=== PATIENT | female | born 1985 | race African-American/Black ===

== ENCOUNTER 2016-06-16 13:14 | Emergency (ER) | payer MEDICAID ==
[~2016-06-16 13:14] MED LIST: Sodium Chloride 0.9% 1,000 ML BAG ONE
[2016-06-16 13:42] LABS: #Basophils 0.1 thou/uL (0.0-0.2); #Eosinphils 0.1 thou/uL (0.0-0.7); #Lymphocytes 3.2 thou/uL (1.20-3.40); #Monocytes 0.6 thou/uL (0.11-0.59); #Neutrophils 6.2 thou/uL (1.40-6.50); %Basophils 0.8 % (0.0-1.0); %Eosinophils 1.1 % (0.0-10.0); %Lymphocytes 31.3 % (21.0-51.0); %Monocytes 5.7 % (0.0-10.0); %Neutrophils 61.1 % (42.0-75.0); Hemoglobin 15.5 g/dL (12.0-16.0); Mean Corpuscular HGB CONC 34.7 g/dL (32.0-36.0); Mean Corpuscular Hemoglobin 31.8 pg (27.0-31.0); Mean Corpuscular Volume 91.7 fl (81.0-99.0); Mean Platelet Volume 7.8 fL (7.4-10.4); Platelet Count 316 thou/uL (130-400); RBC Distribution Width 11.1 % (11.5-14.5); Red Blood Cell (RBC) Count 4.87 mill/uL (4.20-5.40); White Blood Cell (WBC) Count 10.2 thou/uL (4.8-10.8)
[2016-06-16 14:18] LABS: ALT (SGPT) 15 U/L (0-55); AST (SGOT) 16 U/L (5-34); Albumin 4.7 g/dL (3.5-5.0); Alkaline Phosphatase 72 U/L (40-150); Anion Gap 26 mmol/L (10-20); BUN (Urea Nitrogen) 16 mg/dL (7.0-18.7); Bilirubin, Total 0.7 mg/dL (0.2-1.2); Calc. Creatinine Clearance 0 mL/min (70-130); Calcium 9.9 mg/dL (7.8-10.44); Carbon Dioxide 12 mmol/L (22-29); Chloride 97 mmol/L (98-107); Estimated GFR-MDRD 61; Globulin 3.9 g/dL (2.4-3.5); Glucose 368 mg/dL (70-105); Potassium 5.3 mmol/L (3.5-5.1); Protein, Total 8.6 g/dL (6.0-8.3); Sodium 130 mmol/L (136-145)
[2016-06-16 14:38] LABS: Blood, Urine Trace (Negative); Clarity Clear (Clear); Glucose, Urine (Dipstick) 500 mg/dL (Negative); Leukocyte Negative (Negative); Nitrite Negative (Negative); Protein, Urine (Dipstick) 30 mg/dL (Neg-Trace); Specific Gravity, Urine 1.025 (1.005-1.030); Urobilinogen 0.2 mg/dL (0.2-1.0)
[2016-06-16] MEDS ORDERED: Insulin Regular 300 UNITS/3 ML VIAL ONE (14:39)
[2016-06-16 14:44] LABS: Bilirubin Negative (Negative); Icto Negative (Negative); RBC/HPF 0-3 HPF (0-3)
[2016-06-16 14:45] LABS: Bacteria/HPF Rare-Few HPF (None Seen); Pregnancy Test - Urine (BHCG) NEGATIVE (NEGATIVE); Pregu Control Bar Appear? YES (CONTROL BAR); Specific Gravity 1.025 (1.002-1.036)
[2016-06-16 14:46] LABS: Pregu Control Background? CLEAR/WHITE (CLR/WHITE)
[2016-06-16 15:29] LABS: Base Excess -10.3 mEq/L (-2 - +2); Hemoglobin (Hb) 14.9 g/dL (11.7-15.5)
--- NOTE | 2016-06-16 16:58 | PICIS ---
[facility] EMERGENCY RECORD TRIAGE (13:20 MDEB) TRIAGE NOTES: WHEEZING, ELEVATED BLOOD SUGAR. (13:20 MDEB) PATIENT: NAME: Chrystal Huber, AGE: 30, GENDER: female, : Wed1985, TIME OF GREET: WedJun 16, 2016 13:15, PREFERRED LANGUAGE: Romansh, RACE: Black or , ETHNICITY: Not or , ECODE BILLING MAP: [facility], SSN: [id number], Zip Code: [address], PHONE: CELL, , , PERSON ID: [id number], PCP: alina. (13:20 MDEB) KG WEIGHT: 99.79. (13:38 MDEB) COMPLAINT: TROUBLE BREATHING. (13:20 MDEB) ADMISSION: URGENCY: 3 Urgent, ADMISSION SOURCE: Home, TRANSPORT: Walk-in, BED: TRIAGE. (13:20 MDEB) PROVIDERS: TRIAGE NURSE: Padmini Garza RN. (13:20 MDEB) VITAL SIGNS: BP 140/95, Pulse 106, Resp 20, Temp 97.2, (Tympanic), Pain 0, O2 Sat 100, on Room Air, Time 06/16/2016 13:19. (13:19 MDEB) KNOWN ALLERGIES SHELLFISH CURRENT MEDICATIONS No recorded medications VITAL SIGNS (13:19 MDEB) VITAL SIGNS: BP: 140/95, Pulse: 106, Resp: 20, Temp: 97.2 (Tympanic), Pain: 0, O2 sat: 100 on Room Air, Time: 06/16/2016 13:19. NURSING ASSESSMENT: RESPIRATORY /CHEST (13:58 MDEB) CONSTITUTIONAL: Patient arrives ambulatory, Gait steady, History obtained from patient, Patient appears, anxious, in respiratory distress, Patient cooperative, Patient alert, Oriented to person, place and time, Skin warm, Skin dry, Skin normal in color, Mucous membranes pink, Mucous membranes moist, Patient is well-groomed, Patient complains of ELEVATED BLOOD SUGAR, PT REPORTS HAVING DIFFICULTY BREATHING WITH EXERTION. SHE STATES SHE BECOMES WINDED WALKING ACROSS THE ROOM. PT STATES SHE IS WHEEZING. PAIN: Patient rates pain as 0 out of 10. RESPIRATORY/CHEST: Breath sounds clear, Respiratory assessment findings include respiratory effort easy, Respirations regular, Conversing normally, Neck and chest exam findings include trachea midline, Chest expansion equal, Chest movement symmetrical, Notes: NO WHEEZING NOTED. NO KETOSIS NOTED. ENT: Ear assessment findings include ear normal to inspection, Nasal assessment findings include nose normal to inspection, Mouth and throat assessment findings include mouth inspection normal, Mucous membranes pink, and moist, Able to swallow, Speech normal. &a-1R&a+25V*p+0X*v6283N*c202B*c15G*c2P*p-0X&a-25V&a+1R Name: Chrystal Huber : 1985 F30 MedRec: [id number] AcctNum: [id number] Prepared: Parish Jun 16, 2016 16:56 by Interface Page 1 of 11 D [facility] EMERGENCY RECORD NOTES: Emotional support needed and given, Patient tolerated procedure well. SAFETY: Side rails up, Cart/Stretcher in lowest position, Family at bedside, Call light within reach, Hospital ID band on. NURSING PROCEDURE: BEDSIDE TESTING PATIENT IDENTIFIER: Patient actively involved in identification process, Patient's identity verified by patient stating name, Patient's identity verified by hospital ID bracelet. (15:58 MDEB) Patient actively involved in identification process, Patient's identity verified by patient stating name, Patient's identity verified by hospital ID bracelet. (15:07 MDEB) GLUCOSE: Glucose testing indicated for diabetic patient, Capillary blood sample, Result (mg/dl) 290. (15:58 MDEB) Glucose testing indicated for diabetic patient, Capillary blood sample, Result (mg/dl) 331. (15:07 MDEB) FOLLOW-UP: After procedure, results given to Dr. LARA. (15:58 MDEB) After procedure, results given to Dr. LARA. (15:07 MDEB) SAFETY: Side rails up, Cart/Stretcher in lowest position, Family at bedside, Call light within reach, Hospital ID band on. (15:58 MDEB) Side rails up, Cart/Stretcher in lowest position, Family at bedside, Call light within reach, Hospital ID band on. (15:07 MDEB) NURSING PROCEDURE: ENVIRONMENTAL PROTECTION SPECIALIST (13:20 MDEB) PATIENT IDENTIFIER: Patient actively involved in identification process, Patient's identity verified by patient stating name, Patient's identity verified by hospital ID bracelet. ENVIRONMENTAL PROTECTION SPECIALIST: Cardiac monitoring indicated for ELEVATED BLOOD SUGAR, Patient placed on monitor technician, Heart rate: 103, showing sinus tachycardia, Patient placed on non-invasive blood pressure monitor, Patient placed on continuous pulse oximetry. FOLLOW-UP: After procedure, alarms set and on, After procedure, patient tolerating monitoring. NOTES: Emotional support needed and given, Patient tolerated procedure well. SAFETY: Side rails up, Cart/Stretcher in lowest position, Family at bedside, Call light within reach, Hospital ID band on. NURSING PROCEDURE: IV (13:35 SUDEEP) PATIENT IDENITIFIER: Patient actively involved in identification process, Patient's identity verified by patient stating name, Patient's identity verified by hospital ID bracelet. IV SITE 1: IV therapy indicated for hydration, IV therapy indicated for medication administration, IV established, to the left antecubital, using a 20 gauge catheter, in one attempt, IV site prepped with ALCOHOL, Saline lock established, Flushed with normal saline (mls): 10, Labs drawn at time of placement, labeled in the presence of the patient and sent to lab. &a-1R&a+25V*p+0X*b8290L*c202B*c15G*c2P*p-0X&a-25V&a+1R Name: Chrystal Huber : 1985 F30 MedRec: [id number] AcctNum: [id number] Prepared: Parish Jun 16, 2016 16:56 by Interface Page 2 of 11 D [facility] EMERGENCY RECORD FOLLOW-UP SITE 1: After procedure, sterile transparent dressing applied. NOTES: Emotional support needed and given, Patient tolerated procedure well. ORDER DETAILS Order Name: BLOOD GLUCOSE MONITOR, Status: Done, Time: 13:48 06/16/2016, User: SUDEEP, - Ordered for: MD Lara Stanley, - Entered by: MD Lara Stanley - Parish Jun 16, 2016 13:28, - Quantity: 1, Order Name: ENVIRONMENTAL PROTECTION SPECIALIST ED, Status: Done, Time: 13:48 06/16/2016, User: SUDEEP, - Ordered for: MD Lara Stanley, - Entered by: MD Lara Stanley - Tue Jun 16, 2016 13:28, - Quantity: 1, Order Name: CBC with Differential, Status: Active, Time: 13:27 06/16/2016, User: LEAH, - Ordered for: MD Lara Stanley, - Entered by: MD Lara Stanley - Tue Jun 16, 2016 13:27, - Quantity: 1, Order Name: Comprehensive Metabolic Panel, Status: Active, Time: 13:27 06/16/2016, User: LEAH, - Ordered for: MD Lara Stanley, - Entered by: MD Lara Stanley - Tue Jun 16, 2016 13:27, - Quantity: 1, Order Name: Test, Urine (BHCG), Status: Active, Time: 14:24 06/16/2016, User: SUDEEP, - Ordered for: MD Lara Stanley, - Entered by: CALLUM Garza, Padmini Lugo Jun 16, 2016 14:24, - Quantity: 1, Order Name: SALINE LOCK, Status: Done, Time: 13:48 06/16/2016, User: SUDEEP, - Ordered for: MD Lara Stanley, - Entered by: MD Lara Stanley - Tue Jun 16, 2016 13:28, - Quantity: 1, Order Name: Urinalysis w/ Rflx Microscopic, Status: Active, Time: 13:27 06/16/2016, User: LEAH, - Ordered for: MD Lara Stanley, - Entered by: MD Lara Stanley - Tue Jun 16, 2016 13:27, - Quantity: 1, Order Name: VBG- <font color=red> EPOC (Bob Only) </font>, Status: Done, Time: 14:12 06/16/2016, User: JO ANN, - Ordered for: MD Lara Stanley, - Entered by: MD Lara Stanley - Tue Jun 16, 2016 13:27, - Quantity: 1. MEDICATION ADMINISTRATION SUMMARY &a-1R&a+25V*p+0X*s9765O*c202B*c15G*c2P*p-0X&a-25V&a+1R Name: Chrystal Huber : 1985 F30 MedRec: [id number] AcctNum: [id number] Prepared: WedJun 16, 2016 16:56 by Interface Page 3 of 11 pMD [facility] EMERGENCY RECORD Drug Name: *sodium chloride 0.9 % intravenous, Dose Ordered: 999 mL/hr, Route: IV Fluid Infusion, Status: Canceled, Time: 14:36 06/16/2016, Drug Name: DuoNeb, Dose Ordered: one amp(s), Route: Oral, Status: Canceled, Time: 13:47 06/16/2016, Drug Name: humulin 8 units subcut once, Dose Ordered: * , Route: Subcutaneous, Status: Given, Time: 16:20 06/16/2016, Drug Name: HumuLIN R, Dose Ordered: 5 units, Route: IV Push, Status: Given, Time: 14:42 06/16/2016, Drug Name: *sodium chloride 0.9 % intravenous, Dose Ordered: 1 L, Route: IV Fluid Infusion, Status: Given, Time: 14:37 06/16/2016, Drug Name: DuoNeb, Dose Ordered: 3 mL, Route: Nebulize, Status: Given, Time: 13:47 06/16/2016, *Additional information available in notes, Detailed record available in Medication Service section. MEDICATION SERVICE DuoNeb: Order: DuoNeb (ipratropium bromide/albuterol sulfate) - Dose: 3 mL : Nebulize Schedule: Now Ordered by: Ochoa Lara MD Entered by: Padmini Garza RN WedJun 16, 2016 13:46 Documented as given by: Padmini Garza RN WedJun 16, 2016 13:47 Patient, Medication, Dose, Route and Time verified prior to administration. Amount given: 3 ML, Site: Medication administered via Hand-held nebulizer, With oxygen, Correct patient, time, route, dose and medication confirmed prior to administration, Patient advised of actions and side-effects prior to administration, Allergies confirmed and medications reviewed prior to administration, Patient in position of comfort, Side rails up, Cart in lowest position, Family at bedside. humulin 8 units subcut once: Free Text order: humulin 8 units subcut once : : Subcutaneous Ordered by: Ochoa Lara MD Entered by: Ochoa Lara MD WedJun 16, 2016 16:17 Documented as given by: Padmini Garza RN Jun 16, 2016 16:20 Patient, Medication, Dose, Route and Time verified prior to administration. Amount given: 8 UNITS, Medication administered to left upper arm, Correct patient, time, route, dose and medication confirmed prior to administration, Patient advised of actions and side-effects prior to administration, Allergies confirmed and medications reviewed prior to administration, Advised not to ambulate without assistance, Patient in position of comfort, Side rails up, Cart in lowest position, Family at bedside. HumuLIN R: Order: HumuLIN R (insulin regular, human) - Dose: 5 units : IV Push Schedule: Now Ordered by: Ochoa Lara MD Entered by: Ochoa Lara MD Jun 16, 2016 14:37 , &a-1R&a+25V*p+0X*m3023U*c202B*c15G*c2P*p-0X&a-25V&a+1R Name: Lang Poole Chrystal Fuller : 1985 F30 MedRec: [id number] AcctNum: [id number] Prepared: WedJun 16, 2016 16:56 by Interface Page 4 of 11 pMD [facility] EMERGENCY RECORD Acknowledged by: Padmini Garza RN Jun 16, 2016 14:38 Documented as given by: Padmini Garza RN Jun 16, 2016 14:42 Patient, Medication, Dose, Route and Time verified prior to administration. Amount given: 5 units, IV SITE #1 IVP, initial medication, Slowly, Catheter placement confirmed via flush prior to administration, IV site without signs or symptoms of infiltration during medication administration, No swelling during administration, No drainage during administration, IV flushed after administration, Correct patient, time, route, dose and medication confirmed prior to administration, Patient advised of actions and side-effects prior to administration, Allergies confirmed and medications reviewed prior to administration, Patient in position of comfort, Side rails up, Cart in lowest position, Family at bedside, Co-signed by: Robyn Gallego RN Jun 16, 2016 15:05. sodium chloride 0.9 % intravenous: Order: sodium chloride 0.9 % intravenous (0.9 % sodium chloride) - Dose: 1 L : IV Fluid Infusion Schedule: Now Notes: bolus Ordered by: Ochoa Lara MD Entered by: Padmini Garza RN WedJun 16, 2016 14:37 Documented as given by: Padmini Garza RN WedJun 16, 2016 14:37 Patient, Medication, Dose, Route and Time verified prior to administration. Amount given: 1 l, IV SITE #1 IV fluids established for hydration, IV SITE #1 into left antecubital, IV SITE #1 1st bag hung, IV SITE #1 Rate of bolus, 1000 ml/hr, via primary tubing, IV SITE #1 on IV pump, Catheter placement confirmed via flush prior to administration, IV site without signs or symptoms of infiltration during medication administration, No swelling during administration, No drainage during administration, IV flushed after administration, Correct patient, time, route, dose and medication confirmed prior to administration, Patient advised of actions and side-effects prior to administration, Allergies confirmed and medications reviewed prior to administration, Patient in position of comfort, Side rails up, Cart in lowest position, Family at bedside. (CANCELED) DuoNeb: Order: DuoNeb (ipratropium bromide/albuterol sulfate) - Dose: one amp(s) : Oral Schedule: Now Ordered by: Ochoa Lara MD Entered by: Ochoa Lara MD WedJun 16, 2016 13:40 , Acknowledged by: Padmini Garza RN WedJun 16, 2016 13:42 Canceled by: Padmini Garza RN. WedJun 16, 2016 13:47 Cancel reason: INCORRECT DOSING SELECTION. (CANCELED) sodium chloride 0.9 % intravenous: Order: sodium chloride 0.9 % intravenous (0.9 % sodium chloride) - Dose: 999 mL/hr : IV Fluid Infusion Schedule: Now Notes: bolus Now &a-1R&a+25V*p+0X*z8207N*c202B*c15G*c2P*p-0X&a-25V&a+1R Name: Croft Virgilio Chrystal S : 1985 F30 MedRec: [id number] AcctNum: [id number] Prepared: WedJun 16, 2016 16:56 by Interface Page 5 of 11 D [facility] EMERGENCY RECORD Read back and verified Ordered by: Ochoa Lara MD Entered by: CALLUM Irving Jun 16, 2016 14:36 Canceled by: Padmini Garza RN. elia Jun 16, 2016 14:36 Cancel reason: wrong dose. HPI DIABETES (13:28 SHAN) CHIEF COMPLAINT: Patient presents for evaluation of hyperglycemia. HISTORIAN: History provided by patient, History provided by patient's partner, States glucose was in 500's yesterday; felt worse vaguely today and came in for evaluation. Has been urinating a lot. On Wednesday, 3 to 4 days ago went to a different ER for shellfish reaction. Unclear what her labs. ROS (13:35 SHAN) CONSTITUTIONAL: Negative constitutional review of systems, Historian denies chills, denies fever. EYES: Negative eye review of systems. ENT: Negative ears, nose, throat review of systems. CARDIOVASCULAR: Negative cardiovascular review of systems, Historian denies chest pain, denies palpitations. RESPIRATORY: Negative respiratory review of systems, Historian denies cough, denies shortness of breath. GI: Negative gastrointestinal review of systems, Historian denies abdominal pain, denies constipation, denies diarrhea. MUSCULOSKELETAL: Negative musculoskeletal review of systems. SKIN: Negative skin review of systems. NEUROLOGIC: Negative neurologic review of systems. ENDOCRINE: Negative endocrine review of systems. HEMO/LYMPHATIC: Normal hematologic/lymphatic system review. PSYCHIATRIC: Negative psychiatric review of systems. NOTES: All other ROS is negative except as listed in HPI. PAST MEDICAL HISTORY MEDICAL HISTORY: Past medical history includes history of diabetes, Type II. (13:20 MDEB) FEMALE SURGICAL HISTORY: Patient has no surgical history. (13:20 MDEB) PSYCHIATRIC HISTORY: No previous psychiatric history. (13:20 MDEB) SOCIAL HISTORY: Patient drinks socially, Patient denies drug use,. (13:20 MDEB) NOTES: I have reviewed and agree with the PMH/PSxH/FamHx/SocHx obtained by the nurse. (13:35 SHAN) PHYSICAL EXAM (13:35 SHAN) CONSTITUTIONAL: Vital signs reviewed, Patient appears non toxic, Patient alert and oriented to person, place and time, Pt is in no apparent distress. &a-1R&a+25V*p+0X*v2161J*c202B*c15G*c2P*p-0X&a-25V&a+1R Name: Chrystal Huber : 1985 F30 MedRec: [id number] AcctNum: [id number] Prepared: WedJun 16, 2016 16:56 by Interface Page 6 of 11 pMD [facility] EMERGENCY RECORD HEAD: Head exam included findings of head atraumatic, normocephalic. EYES: Eye exam included findings of eyelids normal to inspection, Pupils equally round and reactive to light, Extraocular muscles intact. ENT: Nose exam normal, no nasal deformity, no bleeding from nares, Pharynx exam normal, Mouth exam normal, mucous membranes moist, mild hoarseness. NECK: Neck exam included findings of normal range of motion, Trachea midline. RESPIRATORY CHEST: Respiratory and chest exam normal, Breath sounds clear, No wheezing, No rales, Chest exam included findings of chest movement symmetrical, Chest expansion equal. CARDIOVASCULAR: Cardiovascular assessment normal, Cardiovascular exam included findings of heart rate regular rate and rhythm, Heart sounds normal. ABDOMEN FEMALE: Abdominal exam included findings of abdomen nontender, Bowel sounds normal, no mass, no pulsatile masses, no peritoneal signs. BACK: Back exam included findings of normal inspection, range of motion normal, no costovertebral angle tenderness. UPPER EXTREMITY: Upper extremity exam included findings of inspection normal, Range of motion normal. LOWER EXTREMITY: Lower extremity exam included findings of inspection normal, Range of motion normal. NEURO: Neuro exam findings include patient oriented to person, place and time, Speech normal, no focal motor deficits, no focal sensory deficits. SKIN: Skin exam included findings of skin warm, dry, and normal in color. LYMPHATIC: Lymphatic exam normal. PSYCHIATRIC: Psychiatric exam included findings of patient oriented to person place and time, Normal affect. EVENTS TRANSFER: Triage to Emergency Triage. (WedJun 16, 2016 13:20 MDEB) Emergency Triage to Main ED -01. (13:26 SFRE) Removed from Emergency Main ED -01. (16:43 MDEB) DOCTOR NOTES TEXT: Patient who had shellfish reaction with shortness of breath and wheezing on Wednesday treated elsewhere; senior living diabetic on metformin; came in due to continued hoarseness, some shortness of breath, and hx of glucoses that went up into 500's yesterday. Had solumedrol, Pepcid, and Benadryl in ER in [place]. Took only the next days prednisone only. (13:35 SHAN) Patient has an elevated anion gap, some ketosis, hyperglycemia, and evidence of dehydration; suspect from symptoms related that she has actually improved since yesterday. Will still give some insulin and &a-1R&a+25V*p+0X*q2979N*c202B*c15G*c2P*p-0X&a-25V&a+1R Name: Chrystal Huber : 1985 F30 MedRec: [id number] AcctNum: [id number] Prepared: Parish Jun 16, 2016 16:56 by Interface Page 7 of 11 pMD [facility] EMERGENCY RECORD fluids and try to improve the situation. Discussed the need for good control of the diabetes. (14:49 SHAN) Has improved much; discussed care and treatments. (16:17 SHAN) DATA REVIEWED: Lab data reviewed. (16:17 SHAN) PROBLEM LIST No recorded problems DIAGNOSIS (16:18 SHAN) FINAL: PRIMARY: diabetes type 2 out of control. DISPOSITION PATIENT: Disposition Type: Discharge, Disposition: *Discharge Home. (16:18 SHAN) Patient left the department. (16:43 MDEB) INSTRUCTION (16:22 SHAN) DISCHARGE: DIABETES, GENERAL INFO, DIABETES HYPOGLYCEMIA ORAL AGENT, DIABETIC DIET, DIABETIC HYPERGLYCEMIA. SPECIAL: 1. take the metformin four times a day 2. push extra fluids until the glucoses have normalized 3. take the amaryl/glimepiride 1 mg tablet twice a day 4. record your glucoses before each meal and at bedtime---take these into your provider soon and discuss 5. if possible avoid steroids in the future; sometimes are necessary 6. return if condition worsens. PRESCRIPTION metFORMIN: TABLET : 1,000 mg : ORAL : Quantity: 1 Unit: tab(s) Route: ORAL Schedule: 4 times a day Dispense: 120 Unit: tab(s) May substitute. Refills: No Refills . (16:19 SHAN) NOTES: No Refills. (16:19 SHAN) glimepiride: TABLET : 1 mg : ORAL : Quantity: 1 Unit: tab(s) Route: ORAL Schedule: 2 times a day (before meals) Dispense: 60 Unit: tab(s) May substitute. Refills: No Refills . (16:19 SHAN) NOTES: No Refills. (16:19 SHAN) metFORMIN: TABLET : 500 mg : ORAL : Quantity: 1 Unit: tab(s) Route: ORAL Schedule: every 4 hours Dispense: 120 Unit: tab(s) May substitute. Refills: No Refills . (16:30 SHAN) NOTES: No Refills. (16:30 SHAN) IMAGING (14:12 [facility] VBG RESULT: Image captured from scanner. ADMIN DIGITAL SIGNATURE: MD Lara Stanley. (16: SHAN) MD Jane, Ochoa. (16: SHAN) &a-1R&a+25V*p+0X*j7568U*c202B*c15G*c2P*p-0X&a-25V&a+1R Name: Chrystal Huber : 1985 F30 MedRec: [id number] AcctNum: [id number] Prepared: WedJun 16, 2016 16:56 by Interface Page 8 of 11 pMD [facility] EMERGENCY RECORD RESULTS LABORATORY: CBC with Differential Collection DT: WedJun 16, 2016 13:40, White Blood Cell (WBC) Count 10.2 thou/uL, Range (4.8-10.8), Red Blood Cell (RBC) Count 4.87 mill/uL, Range (4.20-5.40), Hemoglobin 15.5 g/dL, Range (12.0-16.0), Hematocrit 44.7 %, Range (36.0-47.0), Mean Corpuscular Volume 91.7 fl, Range (81.0-99.0), *Mean Corpuscular Hemoglobin 31.8 - H pg, Range (27.0-31.0), Mean Corpuscular HGB CONC 34.7 g/dL, Range (32.0-36.0), *RBC Distribution Width 11.1 - L %, Range (11.5-14.5), Platelet Count 316 thou/uL, Range (130-400), Mean Platelet Volume 7.8 fL, Range (7.4-10.4), %Neutrophils 61.1 %, Range (42.0-75.0), %Lymphocytes 31.3 %, Range (21.0-51.0), %Monocytes 5.7 %, Range (0.0-10.0), %Eosinophils 1.1 %, Range (0.0-10.0), %Basophils 0.8 %, Range (0.0-1.0), #Neutrophils 6.2 thou/uL, Range (1.40-6.50), #Lymphocytes 3.2 thou/uL, Range (1.20-3.40), *#Monocytes 0.6 - H thou/uL, Range (0.11-0.59), #Eosinphils 0.1 thou/uL, Range (0.0-0.7), #Basophils 0.1 thou/uL, Range (0.0-0.2). (13:44 SHAN) Accuchek Collection DT: WedJun 16, 2016 13:29, *Accuchek 331 - H mg/dL, Range (70-110). (13:44 SHAN) Comprehensive Metabolic Panel Collection DT: WedJun 16, 2016 13:39, *Sodium 130 - L mmol/L, Range (136-145), *Potassium 5.3 - H mmol/L, Range (3.5-5.1), *Chloride 97 - L mmol/L, Range (98-107), *Carbon Dioxide 12 - L mmol/L, Range (22-29), *Anion Gap 26 - H mmol/L, Range (10-20), BUN (Urea Nitrogen) 16 mg/dL, Range (7.0-18.7), *Creatinine 1.26 - H mg/dL, Range (0.6-1.1), Estimated GFR-MDRD 61 , Reference Range for Estimated GFR: Greater than 90, mL/min/1.73 m2 NOTE: The MDRD equation has not been validated for use, with the elderly (over 70 years of age), women, patients with, serious comorbid condition or persons with extremes of body size, muscle, mass, or nutritional status. , *Glucose 368 - H mg/dL, Range (70-105), Calcium 9.9 mg/dL, Range (7.8-10.44), Bilirubin, Total 0.7 mg/dL, Range (0.2-1.2), *Protein, Total 8.6 - H g/dL, Range (6.0-8.3), NOTE: Plasma values are generally 0.3 to 0.5 g/dL higher than serum values, due to the presence of fibrinogen. , Albumin 4.7 g/dL, Range (3.5-5.0), &a-1R&a+25V*p+0X*w0988Q*c202B*c15G*c2P*p-0X&a-25V&a+1R Name: Chrystal Huber : 1985 F30 MedRec: [id number] AcctNum: [id number] Prepared: WedJun 16, 2016 16:56 by Interface Page 9 of 11 pMD [facility] EMERGENCY RECORD *Globulin 3.9 - H g/dL, Range (2.4-3.5), Alb/Glob Ratio 1.2 g/dL, Range (1.2-2.2), Alkaline Phosphatase 72 U/L, Range (40-150), AST (SGOT) 16 U/L, Range (5-34), ALT (SGPT) 15 U/L, Range (0-55). (14:25 MDEB) Urine Microscopic Collection DT: WedJun 16, 2016 14:33, RBC/HPF 0-3 HPF, Range (0-3), *WBC/HPF 4-6 - H HPF, Range (0-3), *Squamous Epithelial 4-6 - H HPF, Range (0-3), Bacteria/HPF Rare-Few HPF, Range (None Seen). (14:49 SHAN) Urinalysis w/ Rflx Microscopic Collection DT: WedJun 16, 2016 14:33, Color Yellow , Range (Yellow), Clarity Clear , Range (Clear), Specific [place], Urine 1.025 , Range (1.005-1.030), pH, Urine 5.0 , Range (5.0-9.0), Leukocyte Negative , Range (Negative), Nitrite Negative , Range (Negative), *Protein, Urine (Dipstick) 30 - H mg/dL, Range (Neg-Trace), *Glucose, Urine (Dipstick) 500 - H mg/dL, Range (Negative), *Ketone, Urine > or equal to 80 - mg/dL, * H , Range (Negative), Urobilinogen 0.2 mg/dL, Range (0.2-1.0), Bilirubin Negative , Range (Negative), , *Blood, Urine Trace - H , Range (Negative). (14:49 [facility]) Test, Urine (BHCG) Collection DT: WedJun 16, 2016 14:33, Test - Urine (BHCG) NEGATIVE , Range (NEGATIVE), Method of sensitivity- Indeterminant: results should be repeated, after 48 hours. Positive: results may be detected as early as 4-5 days before a first missed menses. Elimination of BHCG-, Elimination following first trimester D&C: 29-44 Days , Elimination following term : 8-24 Days , Specific [place] 1.025 , Range (1.002-1.036), A dilute urine specimen may, not contain employee relations representative levels of hCG. If is still, suspected, a first morning urine specimen OR a random blood specimen should, be obtained from the patient 48-72 hours later and re-tested. , . (14:51 [facility]) Test, Urine (BHCG) Collection DT: WedJun 16, 2016 14:33, Test - Urine (BHCG) NEGATIVE , Range (NEGATIVE), Method of sensitivity- &a-1R&a+25V*p+0X*q1238C*c202B*c15G*c2P*p-0X&a-25V&a+1R Name: Chrystal Huber : 1985 F30 MedRec: [id number] AcctNum: [id number] Prepared: WedJun 16, 2016 16:56 by Interface Page 10 of 11 pMD [facility] EMERGENCY RECORD Indeterminant: results should be repeated, after 48 hours. Positive: results may be detected as early as 4-5 days before a first missed menses. Elimination of BHCG-, Elimination following first trimester D&C: 29-44 Days , Elimination following term : 8-24 Days , Specific [place] 1.025 , Range (1.002-1.036), A dilute urine specimen may, not contain employee relations representative levels of hCG. If is still, suspected, a first morning urine specimen OR a random blood specimen should, be obtained from the patient 48-72 hours later and re-tested. , . (14:51 LEAH) Accuchek Collection DT: WedJun 16, 2016 15:10, *Accuchek 321 - H mg/dL, Range (70-110). (15:20 LEAH) Blood Gas-Venous Collection DT: WedJun 16, 2016 14:33, *pH (venous) 7.260 - *L , Range (7.34-7.37), Results called to, and verbally verified through read-back by: JOI , @ENTER PERSON CALLED IN THE BRACKETS. by: MARLYN GANN on 06/16/16 at 1528., *CO2 Tension (PvCO2) 36.0 - L mmHg, Range (44-46), *O2 Tension (PvO2) 46.0 - H mmHg, Range (38-42), *Actual Bicarbonate (HCO3v) 16 - L mEq/L, Range (24-30), Base Excess -10.3 mEq/L, Range (-2 - +2), O2 Saturation-measured venous 75.0 %, Range (60-80), Hemoglobin (Hb) 14.9 g/dL, Range (11.7-15.5). (15:39 JO ANN) Jones: SUDEEP=CALLUM Garza, Padmini CHERRY=CALLUM Gallego, Robyn LYNN=MD Jane, Ochoa &a-1R&a+25V*p+0X*d4504I*c202B*c15G*c2P*p-0X&a-25V&a+1R Name: Chrystal Huber : 1985 F30 MedRec: [id number] AcctNum: [id number] Prepared: [place] Jun 16, 2016 16:56 by Interface Page 11 of 11 pMD MTDD
== END 2016-06-16 16:35 | disposition home or self-care (01) ==
LOC: MADERS 13:14
DX: E11.65 Type 2 diabetes mellitus with hyperglycemia (principal)
CPT/HCPCS: 36416; 80053; 81003; 81015; 81025; 82805; 85025; 96361; 96372; 96374; J1815; J7050; J7620

== ENCOUNTER 2017-02-20 02:37 | Emergency (ER) | payer MEDICAID ==
[2017-02-20] MEDS ORDERED: Ondansetron HCl/PF 4 MG/2 ML Vial ONE ×2 (03:06→04:28)
[2017-02-20 04:28] LABS: INR-International Normal Ratio 0.9; Prothrombin Time 12.1 SEC (12.0-14.7)
[2017-02-20 04:33] LABS: Bilirubin Negative (Negative); Blood, Urine Negative (Negative); Clarity Clear (Clear); Glucose, Urine (Dipstick) 500 mg/dL (Negative); Leukocyte Negative (Negative); Nitrite Negative (Negative); Protein, Urine (Dipstick) Negative (Neg-Trace); Urobilinogen 0.2 mg/dL (0.2-1.0); pH, Urine 5.5 (5.0-9.0)
[2017-02-20 04:34] LABS: Amphetamine Not Detected (NotDetected); Barbiturates Screen Not Detected (NotDetected); Benzodiazepine Screen Not Detected (NotDetected); Cocaine Metabolite Screen Not Detected (NotDetected); Medtox Control Line Valid? VALID (VALID); Methadone Not Detected (NotDetected); Methamphetamine Not Detected (NotDetected); Opiate Screen Detected (NotDetected); Oxycodone Screen Not Detected (NotDetected); Phencyclidine (PCP) Not Detected (NotDetected); THC/Cannabinoid Screen Not Detected (NotDetected); Tricyclic Screen Not Detected (NotDetected)
[2017-02-20 04:34] LABS: PTT 17.3 SEC (22.9-36.1)
[2017-02-20 04:35] LABS: BHCG - Serum Negative (NEGATIVE); Pregs Control Background? CLEAR/WHITE (CLR/WHITE); Pregs Control Bar Appear? YES (CONTROL BAR)
[2017-02-20 04:36] LABS: Hemoglobin 13.1 g/dL (12.0-16.0); Mean Corpuscular HGB CONC 34.1 g/dL (32.0-36.0); Mean Corpuscular Hemoglobin 31.4 pg (27.0-31.0); Platelet Count 106 thou/uL (130-400); RBC Distribution Width 10.9 % (11.5-14.5); Red Blood Cell (RBC) Count 4.18 mill/uL (4.20-5.40); White Blood Cell (WBC) Count 10.1 thou/uL (4.8-10.8)
[2017-02-20 04:37] LABS: #Basophils 0.2 thou/uL (0.0-0.2); #Lymphocytes 2.4 thou/uL (1.20-3.40); #Monocytes 0.5 thou/uL (0.11-0.59); #Neutrophils 7.1 thou/uL (1.40-6.50); %Basophils 1.5 % (0.0-1.0); %Eosinophils 0.2 % (0.0-10.0); %Lymphocytes 23.9 % (21.0-51.0); %Monocytes 4.5 % (0.0-10.0); %Neutrophils 69.9 % (42.0-75.0); Mean Platelet Volume 10.1 fL (7.4-10.4); Platelet Clumps MODERATE
[2017-02-20 04:38] LABS: ALT (SGPT) 9 U/L (8-55); AST (SGOT) 16 U/L (5-34); Albumin 4.2 g/dL (3.5-5.0); Alkaline Phosphatase 65 U/L (40-150); Anion Gap 19 mmol/L (10-20); BUN (Urea Nitrogen) 9 mg/dL (7.0-18.7); Bilirubin, Total 0.3 mg/dL (0.2-1.2); Calc. Creatinine Clearance 0 mL/min (70-130); Calcium 9.2 mg/dL (7.8-10.44); Carbon Dioxide 18 mmol/L (22-29); Chloride 101 mmol/L (98-107); Estimated GFR-MDRD 81; Globulin 3.3 g/dL (2.4-3.5); Glucose 418 mg/dL (70-105); PLT Morphology Comment Appears Adequate; Potassium 3.8 mmol/L (3.5-5.1); Protein, Total 7.5 g/dL (6.0-8.3); Sodium 134 mmol/L (136-145)
[2017-02-20] MEDS ORDERED: Sodium Chloride 0.9% 1,000 ML BAG ONE (07:37)
--- NOTE | 2017-02-20 08:39 | CT ---
PRELIMINARY REPORT/[facility]/EMERGENCY AFTER HOURS PROCEDURE: EXAM: CT Cervical Spine Without Intravenous Contrast CLINICAL HISTORY: 31 years old, female; Pain; Neck pain TECHNIQUE: Axial computed tomography images of the cervical spine without intravenous contrast. Coronal and sagittal reformatted images were created and reviewed. COMPARISON: No relevant prior studies available. FINDINGS: Vertebrae: No acute fracture or dislocation. Discs/spinal canal/neural foramina: Possible extension of intraventricular and subarachnoid hemorrha ge, described in the same day CT head, to the level of the brainstem-spinal cord junction; also refer to same day CT head. Soft tissues: No acute findings. Lung apices: No acute findings. IMPRESSION: No acute fracture or dislocation. Also refer to same day CT head as described above. Thank you for allowing us to participate in the care of your patient. Dictated and Authenticated by: Leonardo Nicole MD 02/20/2017 4:31 AM Central Time ([place] \T\ [place]) FINAL REPORT CT CERVICAL SPINE WITH CORONAL AND SAGITTAL REFORMATIONS: I agree with the preliminary report given by Dr. Leonardo Nicole of [facility]. POS: OFF
--- NOTE | 2017-02-20 09:04 | CT ---
PRELIMINARY REPORT/[facility]/EMERGENCY AFTER HOURS PROCEDURE: EXAM: CT Head Without Intravenous Contrast CLINICAL HISTORY: 31 years old, female; Signs and symptoms; Altered mental status/memory loss; Confusion or disorienta tion TECHNIQUE: Axial computed tomography images of the head/brain without intravenous contrast. COMPARISON: No relevant prior studies available. FINDINGS: Brain: Intraventricular and subarachnoid hemorrhage most notably at the level of the skull base, bra instem and cerebellum extending to the level of the spine. 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 Ventricles: Mild hydrocephalus with prominent temporal horns. Bones/joints: No acute fracture. Soft tissues: No acute findings. Sinuses: No significant air fluid levels. Mastoid air cells: No significant fluid. 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 THIS REPORT CONTAINS FINDINGS THAT MAY BE CRITICAL TO PATIENT CARE. The findings were verbally commu nicated via telephone conference with RUPAL EDWARD at 4:05 AM CDT on 02/20/2017. The findings were acknowledged and understood. Thank you for allowing us to participate in the care of your patient. Dictated and Authenticated by: Leonardo Nicole MD 02/20/2017 4:21 AM Central Time ([place] \T\ [place]) FINAL REPORT CT BRAIN: HISTORY: A 31-year-old with altered mental status. FINDINGS: The preliminary exam was performed by [facility]. Noncontrast enhanced CT images of the brain demonstrate areas of acute hemorrhage in the right and l eft lateral ventricles, in the third ventricle and in the fourth ventricle, as well as in the pre-po ntine cistern and the pontomedullary junction. There is some hydrocephalus present. IMPRESSION: Intraventricular and subarachnoid pre-pontine hemorrhage. I concur with the dictation from [facility]. POS: [facility]
== END 2017-02-20 04:20 | disposition short-term general hospital (02) ==
LOC: MADERS 02:37
DX: I60.9 Nontraumatic subarachnoid hemorrhage, unspecified (principal); E11.65 Type 2 diabetes mellitus with hyperglycemia; Z79.84 Long term (current) use of oral hypoglycemic drugs
CPT/HCPCS: 36415; 70450; 72125; 80053; 80306; 81003; 84703; 85025; 85610; 85730; 93005; 94760; 96361; 96374; J2405; J7050

== ENCOUNTER 2017-03-04 23:30 | Emergency (ER) | payer MEDICAID, SELFPAY ==
--- NOTE | 2017-03-05 07:36 | RAD ---
TWO VIEWS RIGHT HIP: HISTORY: Right hip pain and back pain. The patient has been having pain for 2 weeks. Presents to the emerge ncy room at 12:01 a.m. FINDINGS: AP and frogleg views right hip demonstrate no evidence of right hip fracture, subluxation, or bony l esions. IMPRESSION: Normal 2 views right hip. POS: [facility]
== END 2017-03-05 01:00 | disposition home or self-care (01) ==
LOC: MADERS 23:30
DX: M54.41 Lumbago with sciatica, right side (principal); E11.9 Type 2 diabetes mellitus without complications; F41.9 Anxiety disorder, unspecified; F32.9 Major depressive disorder, single episode, unspecified; Z79.899 Other long term (current) drug therapy
CPT/HCPCS: 96372; J2270

== ENCOUNTER 2017-03-11 13:18 | Outpatient (CLI) | payer MEDICAID ==
--- NOTE | 2017-03-11 13:49 | RAD ---
KUB: Date: 03-11-17 Comparison: None. History: Low back pain with right sided sciatica. FINDINGS: Lumbar spine is not fully assessed on this examination as no lateral imaging is provided. Five lumba r type vertebral bodies are present with intact pedicles on frontal imaging. The bowel gas pattern a ppears nonobstructed. Supine imaging limits assessment for free intraperitoneal air and small bowel obstruction. IMPRESSION: No acute findings. POS: [facility]
== END 2017-03-11 13:19 | disposition home or self-care (01) ==
LOC: MADRAD 13:18
PROVIDERS: ATTEND Family Medicine
DX: M54.41 Lumbago with sciatica, right side (principal)
CPT/HCPCS: 74000

== ENCOUNTER 2021-03-10 07:18 | Emergency (ER) | payer MEDICAID, OTHER, SELFPAY ==
[2021-03-10 08:00] LABS: #Basophils 0.1 thou/uL (0.0-0.2); #Eosinphils 0.1 thou/uL (0.0-0.7); #Lymphocytes 1.4 thou/uL (1.20-3.40); #Monocytes 0.3 thou/uL (0.11-0.59); #Neutrophils 2.2 thou/uL (1.40-6.50); %Basophils 1.7 % (0.0-1.0); %Eosinophils 1.6 % (0.0-10.0); %Lymphocytes 33.9 % (21.0-51.0); %Neutrophils 54.8 % (42.0-75.0); Hemoglobin 12.6 g/dL (12.0-16.0); Mean Corpuscular HGB CONC 32.3 g/dL (32.0-36.0); Mean Corpuscular Volume 92.9 fL (78.0-98.0); Platelet Count 304 thou/uL (130-400); RBC Distribution Width 10.7 % (11.5-14.5); Red Blood Cell (RBC) Count 4.21 mill/uL (4.20-5.40); White Blood Cell (WBC) Count 4.1 thou/uL (4.8-10.8)
[2021-03-10] MEDS ORDERED: Ondansetron ODT 4 MG TAB ONE (08:05)
[2021-03-10 08:12] LABS: BHCG - Serum Negative (NEGATIVE); Pregs Control Background? CLEAR/WHITE (CLR/WHITE); Pregs Control Bar Appear? YES (CONTROL BAR)
[2021-03-10 08:13] LABS: CO2 Tension (PvCO2) 47.6 mmHg (42.0-51.0); Calcium, Ionized 1.23 mmol/L (1.15-1.33); Chloride 104 mmol/L (98-107); Hemoglobin - Calc 12.7 g/dL (12.0-16.0); Sodium 139 mmol/L (138-145); T. Carbon Dioxide 28.5 mmol/L (22.0-28.0); vO2 Saturation-calc 93.2 % (60.0-85.0)
[2021-03-10 08:17] LABS: ALT (SGPT) Less than 7 U/L (8-55); AST (SGOT) 7 U/L (5-34); Albumin 3.7 g/dL (3.5-5.0); Alkaline Phosphatase 52 U/L (40-110); Anion Gap 13 mmol/L (10-20); BUN (Urea Nitrogen) 8 mg/dL (7.0-18.7); Bilirubin, Total 0.4 mg/dL (0.2-1.2); Calc. Creatinine Clearance 0 mL/min (70-130); Calcium 9.3 mg/dL (7.8-10.44); Carbon Dioxide 25 mmol/L (22-29); Chloride 104 mmol/L (98-107); Globulin 2.6 g/dL (2.4-3.5); Glucose 121 mg/dL (70-105); Lipase 42 U/L (8-78); Magnesium 1.4 mg/dL (1.6-2.6); Protein, Total 6.3 g/dL (6.0-8.3); Sodium 138 mmol/L (136-145)
[2021-03-10] MEDS ORDERED: Metoclopramide HCl 10 MG TAB ONE (08:50)
== END 2021-03-10 09:00 | disposition home or self-care (01) ==
LOC: MADERS 07:18
DX: K52.9 Noninfective gastroenteritis and colitis, unspecified (principal); E10.65 Type 1 diabetes mellitus with hyperglycemia; Z79.4 Long term (current) use of insulin
CPT/HCPCS: 36416; 80053; 82330; 82803; 83690; 83735; 84703; 85014; 85025; 99284; 36415-59; Q0162

== ENCOUNTER 2023-06-29 06:53 | Emergency (ER) | payer BC, OTHER ==
[2023-06-29] MEDS ORDERED: Sodium Chloride 0.9% 1,000 ML ONE (07:17)
[2023-06-29] MEDS ORDERED: Ketorolac Tromethamine 30 MG (1 mL) VIAL ONE (07:34)
[2023-06-29] MEDS ORDERED: Ondansetron PF 4 MG/2 ML Vial ONE (07:34)
[2023-06-29] MEDS ORDERED: Dicyclomine 10 MG CAP ONE (07:43)
[2023-06-29 07:51] LABS: #Lymphocytes 0.6 thou/uL (1.20-3.40); #Monocytes 0.3 thou/uL (0.11-0.59); #Neutrophils 9.5 thou/uL (1.40-6.50); %Basophils 0.5 % (0.0-1.0); %Lymphocytes 5.9 % (21.0-51.0); %Monocytes 2.9 % (0.0-10.0); %Neutrophils 90.7 % (42.0-75.0); Hematocrit 44.1 % (36.0-47.0); Hemoglobin 13.8 g/dL (12.0-16.0); Mean Corpuscular HGB CONC 31.2 g/dL (32.0-36.0); Mean Corpuscular Hemoglobin 30.4 pg (27.0-31.0); Mean Corpuscular Volume 97.3 fl (78.0-98.0); Mean Platelet Volume 7.4 fL (7.4-10.4); Platelet Count 317 10x3/uL (130-400); RBC Distribution Width 12.1 % (11.5-14.5); Red Blood Cell (RBC) Count 4.53 mill/uL (4.20-5.40); White Blood Cell (WBC) Count 10.5 10x3/uL (4.8-10.8)
[2023-06-29 08:00] LABS: BHCG - Serum Negative (NEGATIVE); Pregs Control Background? CLEAR/WHITE (CLR/WHITE); Pregs Control Bar Appear? YES (CONTROL BAR)
[2023-06-29 08:02] LABS: ALT (SGPT) 10 U/L (8-55); AST (SGOT) 15 U/L (5-34); Albumin 4.4 g/dL (3.5-5.0); Alkaline Phosphatase 68 U/L (40-110); Anion Gap 27 mmol/L (10-20); BUN (Urea Nitrogen) 25 mg/dL (7.0-18.7); Bilirubin, Total 0.3 mg/dL (0.2-1.2); Calc. Creatinine Clearance 0 mL/min (70-130); Calcium 9.3 mg/dL (7.8-10.44); Chloride 102 mmol/L (98-107); Estimated GFR 52; Globulin 3.6 g/dL (2.4-3.5); Glucose 212 mg/dL (70-105); Lipase 26 U/L (8-78); Potassium 5.1 mmol/L (3.5-5.1); Sodium 132 mmol/L (136-145)
[2023-06-29 08:31] LABS: Carbon Dioxide 8 mmol/L (22-29)
[2023-06-29 08:34] LABS: Base Excess-Venous -22.6 mmol/L (-2.0 to 3.0); Bicarbonate (HCO3v) 6.7 mmol/L (22.0-28.0); Calcium, Ionized 1.13 mmol/L (1.15-1.33); Chloride 112 mmol/L (98-107); Hemoglobin - Calc 16.3 g/dL (12.0-16.0); Potassium 4.9 mmol/L (3.5-5.1); Sodium 128 mmol/L (138-145); T. Carbon Dioxide 7.5 mmol/L (22.0-28.0); vO2 Saturation-calc 99.1 % (60.0-85.0)
[2023-06-29] MEDS ORDERED: Bicillin LA 1.2 MILLION UNITS/2 ML SYRINGE ONE (08:35)
[2023-06-29] MEDS ORDERED: Lactated Ringer's 1,000 ML ONE (08:35)
[2023-06-29] MEDS ORDERED: Prochlorperazine 10 MG/2 ML VIAL ONE ×2 (08:40→09:36)
[2023-06-29 08:49] LABS: Magnesium 1.9 mg/dL (1.6-2.6)
[2023-06-29] MEDS ORDERED: Dextrose 5 %-0.45 % NaCl 1,000 ML ONE (09:10)
[2023-06-29] MEDS ORDERED: INSULIN REGULAR IN 0.9 % NACL 100 UNITS/100 ML BAG ONE (09:10)
[2023-06-29] MEDS ORDERED: Dicyclomine 20 MG/2 ML VIAL ONE (09:36)
== END 2023-06-29 09:55 | disposition short-term general hospital (02) ==
LOC: MADERS 06:53
DX: E11.10 Type 2 diabetes mellitus with ketoacidosis without coma (principal); J02.0 Streptococcal pharyngitis
CPT/HCPCS: 36416; 80053; 82010; 82330; 82803; 83605; 83690; 83735; 84703; 85025; 96361; 96365; 96372; 96375; 96376; 36415-59; J0561; J0780; J1815; J1885; J2405; J7042; J7050; J7120

== ENCOUNTER 2024-05-07 20:50 | Emergency (ER) | payer BC, OTHER, SELFPAY ==
[2024-05-07] MEDS ORDERED: Sodium Chloride 0.9% 1,000 ML ONE ×2 (21:14→23:18)
[2024-05-07 21:55] LABS: Band 2 % (5-11); Hematocrit 41.6 % (36.0-47.0); Hemoglobin 13.5 g/dL (12.0-16.0); Lymphocytes 26 % (21-51); MDiff Complete? YES; Mean Corpuscular HGB CONC 32.4 g/dL (32.0-36.0); Mean Corpuscular Hemoglobin 30.2 pg (27.0-31.0); Mean Corpuscular Volume 93.3 fl (78.0-98.0); Mean Platelet Volume 8.1 fL (7.4-10.4); Monocytes 6 % (0-10); Neutrophil 66 % (42-75); Platelet Count 332 10x3/uL (130-400); RBC Distribution Width 11.5 % (11.5-14.5); Red Blood Cell (RBC) Count 4.46 mill/uL (4.20-5.40); White Blood Cell (WBC) Count 8.8 10x3/uL (4.8-10.8)
[2024-05-07] MEDS ORDERED: Acetaminophen 500 MG TAB ONE (21:56)
[2024-05-07 21:58] LABS: Base Excess-Venous -14.5 mmol/L (-2.0 to 3.0); Bicarbonate (HCO3v) 12.6 mmol/L (22.0-28.0); CO2 Tension (PvCO2) 33.1 mmHg (42.0-51.0); Calcium, Ionized 1.15 mmol/L (1.15-1.33); Chloride 100 mmol/L (98-107); Hemoglobin - Calc 15.4 g/dL (12.0-16.0); Phosphorus 4.4 mg/dL (2.3-4.7); Potassium 4.9 mmol/L (3.5-5.1); Sodium 127 mmol/L (138-145); T. Carbon Dioxide 13.6 mmol/L (22.0-28.0); vO2 Saturation-calc 97.5 % (60.0-85.0)
[2024-05-07 22:00] LABS: ALT (SGPT) 9 U/L (8-55); AST (SGOT) 14 U/L (5-34); Albumin 4.3 g/dL (3.5-5.0); Alkaline Phosphatase 89 U/L (40-110); Anion Gap 27 mmol/L (10-20); BUN (Urea Nitrogen) 20 mg/dL (7.0-18.7); Bilirubin, Total 0.4 mg/dL (0.2-1.2); Calc. Creatinine Clearance 0 mL/min (70-130); Calcium 10.1 mg/dL (7.8-10.44); Carbon Dioxide 11 mmol/L (22-29); Chloride 97 mmol/L (98-107); Estimated GFR 50; Globulin 3.8 g/dL (2.4-3.5); Lipase 68 U/L (8-78); Magnesium 1.8 mg/dL (1.6-2.6); Potassium 4.9 mmol/L (3.5-5.1); Protein, Total 8.1 g/dL (6.0-8.3); Sodium 130 mmol/L (136-145); Troponin I Less than 0.010 ng/mL (< 0.028)
[2024-05-07 22:06] LABS: Glucose 416 mg/dL (70-105)
[2024-05-07] MEDS ORDERED: Insulin Regular, Human 100 UNIT/ML 10 ML VIAL ONE (22:11)
[2024-05-07 22:56] LABS: Bilirubin Negative (Negative); Blood, Urine Negative (Negative); Clarity Clear (Clear); Glucose, Urine (Dipstick) 500 mg/dL (Negative); Ketone, Urine > or equal to 80 mg/dL (Negative); Leukocyte Negative (Negative); Nitrite Negative (Negative); Protein, Urine (Dipstick) Negative (Neg-Trace); Urobilinogen 0.2 mg/dL (Less than 2); pH, Urine 5.5 (5.0-9.0)
[2024-05-07 23:00] LABS: Bacteria/HPF Rare-Few HPF (None Seen); CAUTI Indications for Culture Dysuria,urgency,freq; RBC/HPF 0-3 HPF (0-3); Squamous Epithelial 0-3 HPF (0-3); Urine Culture Reflex No No; WBC/HPF 0-3 HPF (0-3)
[2024-05-07] MEDS ORDERED: Milk Of Magnesia 30 ML UDCUP ONE (23:39)
[2024-05-07] MEDS ORDERED: Lidocaine Viscous Sol 2% 15 ml UD Cup ONE (23:39)
[2024-05-08 00:24] LABS: Base Excess-Venous -12.9 mmol/L (-2.0 to 3.0); Bicarbonate (HCO3v) 14.1 mmol/L (22.0-28.0); CO2 Tension (PvCO2) 35.6 mmHg (42.0-51.0); Calcium, Ionized 1.11 mmol/L (1.15-1.33); Chloride 110 mmol/L (98-107); Hemoglobin - Calc 12.8 g/dL (12.0-16.0); Potassium 4.3 mmol/L (3.5-5.1); Sodium 134 mmol/L (138-145); T. Carbon Dioxide 15.2 mmol/L (22.0-28.0); vO2 Saturation-calc 97.9 % (60.0-85.0)
[2024-05-08 00:31] LABS: ALT (SGPT) 7 U/L (8-55); AST (SGOT) 12 U/L (5-34); Albumin 3.6 g/dL (3.5-5.0); Alkaline Phosphatase 73 U/L (40-110); Anion Gap 20 mmol/L (10-20); BUN (Urea Nitrogen) 18 mg/dL (7.0-18.7); Bilirubin, Total 0.3 mg/dL (0.2-1.2); Calc. Creatinine Clearance 0 mL/min (70-130); Calcium 8.8 mg/dL (7.8-10.44); Carbon Dioxide 12 mmol/L (22-29); Chloride 107 mmol/L (98-107); Estimated GFR 69; Globulin 3.2 g/dL (2.4-3.5); Glucose 208 mg/dL (70-105); Potassium 4.4 mmol/L (3.5-5.1); Protein, Total 6.8 g/dL (6.0-8.3); Sodium 135 mmol/L (136-145)
== END 2024-05-08 00:52 | disposition home or self-care (01) ==
LOC: MADERS 20:50
DX: E11.65 Type 2 diabetes mellitus with hyperglycemia (principal); E11.10 Type 2 diabetes mellitus with ketoacidosis without coma; Z79.84 Long term (current) use of oral hypoglycemic drugs; Z79.4 Long term (current) use of insulin
CPT/HCPCS: 36415; 36416; 80053; 81001; 82010; 82330; 82435; 82803; 83690; 83735; 84100; 84132; 84295; 84484; 85014; 85025; 93005; 94760; 96361; 96374; J1815; J7030